=== PATIENT | female | born 1990 | race Caucasian/White ===

== ENCOUNTER → 2017-10-07 | Outpatient (CLI) | payer OTHER ==
[~2017-10-07] MED LIST: CLON.1 PO; DOXY100 PO; HYDACE10B PO; HYDACE5 PO; MULTIVITAMIN PO; NAPR500 PO; OXYACE5T PO; PROM25 PO; RXPROM25 PO; SERT50 PO; Verotin-Gr Cap1 EACH PO
== END | disposition home or self-care (01) ==
LOC: LAB SHORT 14:18 → PLD 14:18
DX: D06.7 Carcinoma in situ of other parts of cervix (principal)
CPT/HCPCS: 88305

== ENCOUNTER 2017-10-28 10:58 | Day surgery (SDC) | payer OTHER ==
[~2017-10-28] VITALS: Ht 170.2 cm; Wt 56.7 kg
== END 2017-10-28 23:00 | disposition home or self-care (01) ==
LOC: ORSCMMR 10:58
PROVIDERS: Obstetrics & Gynecology
PROC: 0UBC7ZX Excision of Cervix, Via Natural or Artificial Opening, Diagnostic (ICD-10-PCS; principal; 2017-10-28 12:30)
DX: R87.613 High grade squamous intraepithelial lesion on cytologic smear of cervix (HGSIL) (principal)
CPT/HCPCS: 88307; J0171; J1100; J1885; J2250; J2405; J3010; J7120

== ENCOUNTER 2017-11-27 07:18 | Day surgery (SDC) | payer OTHER ==
[~2017-11-27] VITALS: Ht 170.2 cm; Wt 55.5 kg
== END 2017-11-27 09:16 | disposition home or self-care (01) ==
LOC: ORSCSDS 07:18
PROVIDERS: Internal Medicine Gastroenterology
PROC: 0DB98ZX Excision of Duodenum, Via Natural or Artificial Opening Endoscopic, Diagnostic (ICD-10-PCS; principal; 2017-11-27 08:45)
PROC: 0DB68ZX Excision of Stomach, Via Natural or Artificial Opening Endoscopic, Diagnostic (ICD-10-PCS; principal; 2017-11-27 08:45)
DX: R10.9 Unspecified abdominal pain (principal); R14.0 Abdominal distension (gaseous); R11.0 Nausea; Z79.899 Other long term (current) drug therapy
CPT/HCPCS: 88305; 88342; J0330; J1980; J2250; J2405

== ENCOUNTER → 2019-03-25 | Outpatient (CLI) | payer OTHER ==
[2019-03-27 15:07] LABS: HPV 16 Negative (Negative); HPV 18 Negative (Negative); HPV OTHER HR TYPES Negative (Negative)
== END | disposition home or self-care (01) ==
LOC: LAB SHORT 15:47 → LAB 15:47
PROVIDERS: Obstetrics & Gynecology
DX: Z01.419 Encounter for gynecological examination (general) (routine) without abnormal findings (principal)
CPT/HCPCS: 87624; G0123